=== PATIENT | female | born 1965 | race African-American/Black ===

== ENCOUNTER 2016-12-13 22:20 | Emergency (ER) ==
[2016-12-13 23:13] LABS: MANUAL DIFF NEEDED? NO
[2016-12-13 23:20] LABS: BASO% 0.4 % (0.0-0.8); EOS# 0.31 X1000 (0.0-0.7); HEMATOCRIT 43.2 % (37.0-47.0); HEMOGLOBIN 14.2 g/dL (12.0-16.0); IMM GRAN# 0.01 X1000 (0.0-0.04); IMM GRAN% 0.1 % (0.0-0.5); LYMPH# 3.42 X1000 (1.2-3.4); LYMPH% 44.2 % (20.5-51.1); MCH 26.7 PG (27-31); MCHC 32.9 g/dL (33-37); MCV 81.2 FL (81-99); MONO# 0.55 X1000 (0.11-0.59); MONO% 7.1 % (1.7-9.3); NEUT% 44.2 % (42.2-75.2); PLT 316 X1000 (130-400); RBC 5.32 XMIL (4.2-5.4)
[2016-12-13 23:36] LABS: AGAP 11; ALBUMIN 4.3 g/dL (3.5-5.0); ALKALINE PHOSPHATASE 116 U/L (32-104); BUN 10 mg/dL (8-22); CALCIUM 9.6 mg/dL (8.8-10.2); CHLORIDE 102 mmol/L (98-107); COSMO 282; GOT 18 U/L (10-30); GPT 13 U/L (10-36); POTASSIUM 3.4 mmol/L (3.5-5.1); SODIUM 141 mmol/L (136-145); TCO2 28 mmol/L (25-35); TOTAL PROTEIN 7.2 g/dL (6.3-8.3)
[2016-12-13 23:44] LABS: URINE SOURCE CLEAN CATCH
[2016-12-13 23:45] LABS: FREE T4 0.95 ng/dL (0.93-1.70)
[2016-12-13 23:51] LABS: UR AMPHETAMINES QUAL NONE DETECTED (NONE DETECT); UR BARBITUATES QUAL NONE DETECTED (NONE DETECT); UR BENZODIAZEPIN QUAL NONE DETECTED (NONE DETECT); UR CANNABINOIDS QUAL NONE DETECTED (NONE DETECT); UR COCAINE QUAL NONE DETECTED (NONE DETECT); UR MDMA QUAL NONE DETECTED (NONE DETECT); UR METHADONE QUAL NONE DETECTED (NONE DETECT); UR METHAMPHETAMINE QUAL NONE DETECTED (NONE DETECT); UR OPIATES QUAL NONE DETECTED (NONE DETECT); UR OXYCODONE QUAL NONE DETECTED (NONE DETECT); UR PCP QUAL NONE DETECTED (NONE DETECT); UR TCA QUAL NONE DETECTED (NONE DETECT)
[2016-12-13 23:52] LABS: BILIRUBIN URINE NEGATIVE (NEGATIVE); BLOOD URINE NEGATIVE (NEGATIVE); CLARITY CLEAR (CLEAR); COLOR YELLOW; GLUCOSE URINE NEGATIVE (NEGATIVE); LEUKOCYTES URINE NEGATIVE (NEGATIVE); NITRITE URINE NEGATIVE (NEGATIVE); PROTEIN URINE NEGATIVE (NEGATIVE); SP GRAVITY URINE 1.015; UROBILINOGEN URINE 4+(12 mg/dL)
[2016-12-14 00:06] LABS: URINE CULTURE PL NEEDED? YES; URINE EPITHELIAL CELLS <10 /HPF (<10); URINE RBC <10 /HPF (<10); URINE WBC <10 /HPF (<10)
--- NOTE | 2016-12-14 00:37 | PROVIDER DOCUMENTATION ---
HPI-Psychological Disorder - General Chief Complaint: Psych Stated Complaint: PSYCH-"CAT SCAN" Time Seen by Provider: 12/14/16 00:26 Source: patient Allergies/Adverse Reactions: Patient Allergies Allergy/AdvReac Type Severity Reaction Status Date / Time No Known Allergies Allergy Verified 12/13/16 22:38 Home Medications: Home Medication List Medication Instructions Recorded Confirmed Last Taken Type LISINOpril [Prinivil] 20 mg PO DAILY 10/10/16 11/06/16 12/10/16 08:00 History Hydrocodone/Acetaminophen [Sargents 1 each PO Q4-6H PRN PRN #12 tablet 11/06/16 08:00 Rx 5-325 Tablet] Cyclobenzaprine [Flexeril] 10 mg PO TID 12/14/16 12/14/16 12/11/16 08:00 History Hydrocodone/Ibuprofen [Vicoprofen 1 each PO TID 12/14/16 12/11/16 08:00 History 200-7.5 mg Tab] - History of Present Illness-Psych Nature of Presenting Problem: Pham AMADOR PRESENTS TO ED WITH C/O PT STATES SHE HEARS VOICES TELLING HER TO HARM HERSELF. PT STATES SYMPTOMS HAVE BEEN PRESENT FOR 1 MONTH. Onset/Duration: reports: 1-3 hours ago Psychiatric Complaints: reports: hallucinating Similar Symptoms Previously?: No Recently seen or treated by another doctor?: No Review of Systems - Adult - REVIEW OF SYSTEMS - ADULT Constitutional: denies: chills, fever Eyes: reports: no symptoms reported Ears, Nose, Mouth & Throat: reports: no symptoms reported Cardiovascular: denies: chest pain, palpitations, syncope Respiratory: denies: cough, shortness of breath, wheezing Gastrointestinal: denies: abdominal pain, diarrhea, nausea, vomiting Genitourinary: reports: no symptoms reported Musculoskeletal: denies: back pain, neck pain Integumentary: reports: no symptoms reported Neurological: denies: dizziness/vertigo, headache/migraines, syncope Psychiatric: reports: other (AUDITROY HALLUCINATIONS) Endocrine: reports: no symptoms reported Hematologic/Lymphatic: reports: no symptoms reported Allergic/Immunologic: reports: no symptoms reported All Other Systems: Reviewed and Negative Past History - Adult - PAST MEDICAL HISTORY-ADULT Review of Records: reports: Nursing Assessment Review, Medications Reviewed Cardiovascular: reports: HTN - PRIOR SURGERIES/PROCEDURES Surgical/Procedure History: reports: hysterectomy, BTL - IMMUNIZATION STATUS Childhood Immunizations: See Nurse Assessment Flu Vaccine: See Nurse Assessment - FAMILY HISTORY Family History: reviewed, not pertinent - SOCIAL HISTORY Smoking: cigarettes, less than 1 pack/day Provider spent 3-5 mins advising pt. on dangers of tobacco.: Discussed manners to quit use, and f/u contacts for add'l counseling. Substance Use: denies Alcohol Use Frequency: never Living Situation: alone Physical Exam-Psych Focus - Physical Exam-Psych Appearance: appropriate appearance, mild distress Neurological: alert, calm, oriented x 3 Behavior/Eye Contact/Speech: cooperative, avoids eye contact Thoughts/Hallucinations: auditory hallucinations HENMT: normocephalic/atraumatic, moist mucous membranes Neck: non-tender, full range of motion, supple Respiratory: chest non-tender, lungs clear, normal breath sounds Cardiovascular: normal peripheral pulses, regular rate, rhythm Abdominal Exam: normal bowel sounds, non tender, soft Lymphatic: no adenopathy Back Exam: normal inspection, no CVA tenderness, no vertebral tenderness Extremity: normal range of motion, non-tender Integumentary: normal color, normal turgor, warm/dry Progress - CT/MRI 1 CT Study: Head Impression: Normal CT Results: NO ACUTE HEMORRHAGE OR INFARCT SEEN. NO MASSES ARE IDENTIFIED. Departure - Departure Time of Disposition Order: 07:42 DIAGNOSIS: Psychiatric disorder Disposition: [facility] Certified Medical Emergency: Emergent Condition: Good Referrals: Marv Hinson MD [Primary Care Provider] - Attestation - Scribe Verification/Attestation Scribe:: Roman Calixto Acting as Scribe for:: Keny Perez Scribe documention review:: This chart was documented by a scribe and accurately reflects the service the provider performed and the decisions made by the provider.
--- NOTE | 2016-12-14 05:55 | EKG Report ---
Test Performed on : 12/14/2016 03:42:57 AM Test Reason : Psych Blood Pressure : / mmHG Vent. Rate : 068 BPM Atrial Rate : 068 BPM P-R Int : 134 ms QRS Dur : 078 ms QT Int : 448 ms P-R-T Axes : 072 026 063 degrees QTc Int : 476 ms Normal sinus rhythm. Normal ECG No previous ECGs available Unconfirmed Result
[2016-12-14 06:27] VITALS: BP 168/96
--- NOTE | 2016-12-14 12:27 | Diag Imaging Result Document ---
PROCEDURE NAME: HEAD W/O CONTRAST - 12/13/2016 CT HEAD WITHOUT CONTRAST: FINDINGS: A dose reduction protocol was used. No comparison exam. There is no evidence of intracranial hemorrhage, mass effect, midline shift, or hydrocephalus. There are minimal chronic appearing microvascular ischemic changes. There is no indication of recent infarct, although acute infarcts may not be immediately visible. There is no skull fracture. IMPRESSION: No visible acute intracranial abnormality. No hemorrhage or mass effect. A [facility] physician provided preliminary results at 12:20 a.m. on 12/14/2016.
== END 2016-12-14 07:42 ==
LOC: P.ED 22:20
DX: F29 Unspecified psychosis not due to a substance or known physiological condition (principal); R44.0 Auditory hallucinations; I10 Essential (primary) hypertension; F17.210 Nicotine dependence, cigarettes, uncomplicated; Z71.6 Tobacco abuse counseling; Z79.899 Other long term (current) drug therapy
CPT/HCPCS: 70450; 80053; 80305; 81001; 82607; 84439; 84443; 85025; 87088; 93005; 99285; G0480; 80320